=== PATIENT | male | born 1945 | race Caucasian/White ===

== ENCOUNTER 2023-05-10 15:28 | Emergency (ER) | payer OTHER ==
[~2023-05-10] VITALS: Ht 180.3 cm; Wt 89.4 kg
[2023-05-10] MEDS ORDERED: ONDANSETRON HCL/PF 4 MG/2 ML VIAL ONE (16:04)
[2023-05-10] MEDS: IV NS 0.9% 1,000 ML BAG IV ONE (16:05)
[2023-05-10] MEDS: ONDANSETRON HCL/PF 4 MG/2 ML VIAL IVP ONE (16:10)
[2023-05-10 16:34] LABS: BASOPHILS % (AUTO) 0.2 % (0.0-2.0); EOSINOPHILS % (AUTO) 0.1 % (0.0-6.0); HEMATOCRIT 47 % (39-51); LYMPHOCYTES # (AUTO) 0.7 K/uL (0.8-4.8); LYMPHOCYTES % (AUTO) 7.2 % (20.0-44.0); MEAN CORPUSCULAR HEMOGLOBIN 27 PG (26.0-33.0); MEAN CORPUSCULAR HGB CONC 32 g/dl (31.0-36.0); MEAN CORPUSCULAR VOLUME 83 fL (80-96); MONOCYTES # (AUTO) 0.3 K/uL (0.1-1.30); MONOCYTES % (AUTO) 2.7 % (2.0-12.0); NEUTROPHILS # (AUTO) 8.5 K/uL (1.8-8.9); NEUTROPHILS % (AUTO) 89.8 % (43.0-81.0); PLATELET COUNT (AUTO) 162 K/uL (150-450); WHITE BLOOD COUNT (AUTO) 9.5 K/uL (4.3-11.0)
[2023-05-10 16:51] LABS: CALCIUM, SERUM 9.1 mg/dL (8.5-10.1); CARBON DIOXIDE 21 mmol/L (21-32); CHLORIDE 98 mmol/L (98-107); GLUCOSE 280 mg/dL (74-106); SODIUM SERUM 131 mmol/L (136-145); UREA NITROGEN, BLOOD 27 mg/dL (7-18)
[2023-05-10 17:03] LABS: ALANINE AMINOTRANSFERASE 422 U/L (12-78); ALBUMIN 3.2 g/dL (3.4-5.0); ALKALINE PHOSPHATASE 214 U/L (46-116); ASPARTATE AMINOTRANSFERASE 623 U/L (15-37); BILIRUBIN,TOTAL 2.4 mg/dL (0.2-1.0); TOTAL PROTEIN, SERUM 7.6 g/dL (6.4-8.2)
[2023-05-10] MEDS ORDERED: ONDA4TAB5 PO (17:04)
[2023-05-10 18:14] VITALS: BP 138/84; TEMP 98.3; O2SAT 97
[2023-05-10 19:32] LABS: ANISOCYTOSIS 1+; BAND % (MANUAL) 8 % (0.0-5.0); LYMPHOCYTES % (MANUAL) 5 % (16-48); MONOCYTES % (MANUAL) 3 % (0-11.0); NEUTROPHILS % (MANUAL) 84 (42-76); PLATELET ESTIMATE ADEQU
== END 2023-05-10 18:14 | disposition home or self-care (01) ==
LOC: ER 15:28
DX: E11.65 Type 2 diabetes mellitus with hyperglycemia (principal); R11.2 Nausea with vomiting, unspecified; I25.2 Old myocardial infarction
CPT/HCPCS: 99283; 96374; 96361; 85025; 80048; 80076; 36415; 85007; J2405; J7030